=== PATIENT | female | born 1985 | race Caucasian/White ===

== ENCOUNTER → 2016-11-05 | Outpatient (CLI) | payer BC | LOC: RAD 12:04 | DX: R05 Cough (principal); R06.00 Dyspnea, unspecified | CPT/HCPCS: 71020 ==

== ENCOUNTER → 2016-11-25 | Outpatient (CLI) | payer BC | LOC: HEART 5 09:14 | DX: J45.909 Unspecified asthma, uncomplicated (principal); F17.200 Nicotine dependence, unspecified, uncomplicated | CPT/HCPCS: 94010 ==